=== PATIENT | male | born 1940 | race Two or more races ===

== ENCOUNTER 2024-03-09 19:34 | Emergency (ER) | payer OTHER ==
[~2024-03-09] VITALS: Ht 175.3 cm; Wt 88.5 kg
[2024-03-09 19:47] VITALS: TEMP 98.1
[2024-03-09 20:17] LABS: BASOPHILS % (AUTO) 0.6 % (0.0-2.0); EOSINOPHILS % (AUTO) 0.5 % (0.0-6.0); HEMATOCRIT 34 % (39-51); HEMOGLOBIN 11.1 g/dL (13.5-17.5); LYMPHOCYTES # (AUTO) 0.7 K/uL (0.8-4.8); LYMPHOCYTES % (AUTO) 11.7 % (20.0-44.0); MEAN CORPUSCULAR HEMOGLOBIN 32 PG (26.0-33.0); MEAN CORPUSCULAR HGB CONC 33 g/dl (31.0-36.0); MEAN CORPUSCULAR VOLUME 96 fL (80-96); MONOCYTES # (AUTO) 0.4 K/uL (0.1-1.30); MONOCYTES % (AUTO) 6.6 % (2.0-12.0); NEUTROPHILS # (AUTO) 4.5 K/uL (1.8-8.9); NEUTROPHILS % (AUTO) 80.6 % (43.0-81.0); PLATELET COUNT (AUTO) 213 K/uL (150-450); RED BLOOD CELL COUNT(AUTO) 3.51 MIL/uL (4.5-6.0); RED CELL DISTRIBUTION WIDTH 14.5 % (11.5-15.0); WHITE BLOOD COUNT (AUTO) 5.6 K/uL (4.3-11.0)
[2024-03-09] MEDS ORDERED: FURO20TA4 PO (20:23)
[2024-03-09] MEDS ORDERED: PANT20TA17 PO (20:23)
[2024-03-09] MEDS ORDERED: DONE10TA44 PO (20:23)
[2024-03-09] MEDS ORDERED: ESCI20TA PO (20:23)
[2024-03-09] MEDS ORDERED: LORA10TA7 PO (20:23)
[2024-03-09] MEDS ORDERED: ENTA200T30 PO (20:23)
[2024-03-09] MEDS ORDERED: BUPR150T10 PO (20:23)
[2024-03-09] MEDS ORDERED: CARB1TAB21 PO (20:23)
[2024-03-09] MEDS ORDERED: RIVA10TA PO (20:23)
[2024-03-09] MEDS ORDERED: VIT1CAPS44 PO (20:23)
[2024-03-09 20:27] LABS: CALCIUM, SERUM 8.2 mg/dL (8.5-10.1); CARBON DIOXIDE 27 mmol/L (21-32); CHLORIDE 105 mmol/L (98-107); CREATININE 1.2 mg/dL (0.6-1.3); GLUCOSE 145 mg/dL (74-106); POTASSIUM 4.9 mmol/L (3.5-5.1); SODIUM SERUM 139 mmol/L (136-145); UREA NITROGEN, BLOOD 25 mg/dL (7-18)
[2024-03-09 20:31] LABS: INR 1.16 (0.91-1.10); PARTIAL THROMBOPLASTIN TIME 27.1 SEC (24.3-34.3); PROTHROMBIN TIME 12.2 SECS (9.2-11.1)
[2024-03-09 20:33] LABS: ALANINE AMINOTRANSFERASE < 6 U/L (12-78); ALBUMIN 2.8 g/dL (3.4-5.0); ALKALINE PHOSPHATASE 62 U/L (46-116); ASPARTATE AMINOTRANSFERASE 7 U/L (15-37); BILIRUBIN,DIRECT 0.2 mg/dL (0.0-0.2); BILIRUBIN,TOTAL 0.9 mg/dL (0.2-1.0)
[2024-03-09 21:27] VITALS: BP 104/65; O2SAT 96
== END 2024-03-09 22:00 | disposition left against medical advice (07) ==
LOC: ER 19:36
DX: R55 Syncope and collapse (principal); K59.00 Constipation, unspecified; K62.5 Hemorrhage of anus and rectum; I95.9 Hypotension, unspecified; G20.A1 Parkinson's disease without dyskinesia, without mention of fluctuations
CPT/HCPCS: 36415; 70450-TC; 71045-TC; 80048-TC; 80076-TC; 83880; 84484-TC; 85025-TC; 85730-TC